=== PATIENT | male | born 1980 | race Two or more races ===

== ENCOUNTER 2024-07-07 14:00 | Emergency (ER) | payer OTHER, SELFPAY ==
--- NOTE | ~2024-07-07 | US_ITS ---
CLINICAL HISTORY: left posterio thigh mass. DVT? Left lower extremity venous duplex ultrasound Comparison: None Findings: The visualized deep veins are fully compressible with normal flow. No popliteal cyst. Noncompressible dilated superficial veins in the distal thigh at the medial aspect. Impression: No deep vein thrombosis. Superficial thrombophlebitis. This document has been electronically signed by: Hortensia Oviedo MD on 07/07/2024 17:03:04
[2024-07-07 14:12] VITALS: BP 138/82; PULSE 91; O2SAT 97
--- NOTE | 2024-07-07 14:41 | ED.GENADULT ---
HPI - General Adult General Chief complaint: Urogenital-Male Stated complaint: INFLAMED FORESKIN Time Seen by Provider: 07/07/24 14:11 Source: patient Mode of arrival: ambulatory Limitations: no limitations History of Present Illness ED Provider: Ben Haywood HPI narrative: 43 male with pmh of varicose veins, ANxiety, Depression presents to the ED for genital pain for 4 days. patient states no able to urinate. Patient state he is not circumsied. Related Data Previous Rx's ?Medication ?Instructions ?Recorded clotrimazole 1 % topical cream 1 appl topical BID 2 weeks #45 07/07/24 grams fluconazole 150 mg tablet 150 mg PO DAILY #2 tabs 07/07/24 hydrocortisone 1 % topical cream 1 appl topical BID #28.4 grams 07/07/24 naproxen 500 mg tablet 500 mg PO BID PRN pain #14 tabs 07/07/24 Allergies Allergy/AdvReac Type Severity Reaction Status Date / Time No Known Allergies Allergy Verified 07/07/24 15:20 Review of Systems Review of Systems: genital pain Yes all other systems are reviewed and are negative Physical Exam ED Vital Signs: Vital Signs - 24 hr 07/07/24 14:44 07/07/24 15:15 07/07/24 19:00 Temperature 98.4 F 98.4 F 98.4 F Pulse Rate 85 16 L 60 Respiratory Rate 16 16 16 Blood Pressure 117/67 117/67 117/67 Pulse Oximetry 95 95 95 Oxygen Delivery Method Room Air Room Air Room Air BMI result Body Mass Index 31.8 Const General: cooperative, healthy appearing, comfortable, no acute distress, well developed, alert, awake and Physically active Orientation/consciousness: patient oriented x3 HENMT Head: Yes normal to inspection, Yes No palpable skull fracture present and Yes normocephalic Eyes General: appearance normal, both eyes and all related structures Neck Neck: Yes normal visual inspection, Yes full ROM, Yes no lymphadenopathy, Yes no meningeal signs, Yes trachea midline and Yes supple Chest Chest palpation & inspection: normal inspection of the chest and normal palpation of entire chest wall Resp Effort & Inspection: normal respiratory effort and able to speak in complete sentences Auscultation: clear to auscultation bilaterally Cardio Jugular venous distension: no JVD Heart sounds: S1 normal heart sound present and S2 normal heart sound present GI Inspection: Yes normal to inspection Palpation (GI): Soft to palpation, not firm, nontender, no guarding and not rigid Other: Not retractable General: Yes no CVA tenderness Back/Spine/Pelvis Back: no CVA tenderness and No back tenderness Skin General skin exam: no rashes or lesions noted, elasticity normal and turgor normal Neuro General: patient oriented x3, gait normal, tone normal, moves all extremities, no meningeal signs, no focal motor deficits, CN's II-XI intact bilaterally and normal sensation to monofilament Cranial nerves: Yes CN's II-XII intact bilaterally Extrem Knee images: 1. Positive for varicose vein,MASS WITH REDNESS. rest of extremity is normal. motor, neuro, and vascular exam is intact. Psych Appearance: grossly normal, well kempt and not disheveled Medical Decision Making Medical Decision Making MDM Narrative: 43-year-old male presents to the ED for phimosis although still able to urinate. Pictures and case was sent to urologist and discussed with the urologist Dr. Dobbins who states presently no need for emergent circumcision and does not recommend trying to retract the foreskin. She recommends sending UA and for patient to be discharged with Diflucan and STEROID cream, FUNGAL CREAM, and for patient to follow up tomorrow in the clinic. Patient denied any distress. Patient on exam found to have left posterior thigh mass that is erythematous patient states history of varicose veins was sent for ultrasound to make sure there is no underlying DVT. 6:09pm: Patient's ultrasound shows superficial phlebitis. Patient will be discharged informed to follow up with primary provider. Not suspecting PE, DVT, shingles, necrotizing fasciitis, Alba gangrene, epididymitis, testicular torsion, or any other life-threatening etiologies. Differential Diagnosis Differential Diagnoses: The differential diagnosis associated with the presentation includes (Phimosis, balanitis, DVT,) Admission/Observation Consideration of admission/observation: Escalation of care including admission/observation considered Consult Healthcare Provider Management of the patient was discussed with: [employer] Food Server (Dr. Dobbins) Lab Data [facility] Lab Attestation statement: I reviewed the patient's lab results. Labs: Lab Results 07/07/24 Range/Units 15:46 Urine Color Yellow Urine Appearance Cloudy Urine pH 6.5 (5.0-9.0) Ur Specific [place] 1.020 (1.005-1.025) Urine Protein 100 (2+) H (Neg-Trace) mg/dL Urine Glucose (UA) Negative (Negative) mg/dL Urine Ketones Negative (Negative) mg/dL Urine Blood Negative (Negative) Urine Nitrite Negative (Negative) Ur Leukocyte Esterase Small (1+) H (Negative) Urine RBC 0-2 (0-2) /HPF Urine WBC 6-10 (0-5) /HPF Ur Squamous Epith Cells 0-2 (0-2) /HPF Urine Bacteria None Seen (None Seen) Hyaline Casts 3-5 (0-2) /LPF Independent Interpretation I performed an independent interpretation of an: Ultrasound Radiology Impression Discussion of test interpretation with radiology: I have reviewed the radiologist's reading. Independent Historian Clinical information obtained from an independent historian. History obtained from or confirmed by: Other (patient) Discharge Plan Discharge Clinical Impression: Balanitis, Phimosis, Superficial thrombophlebitis Patient Disposition: Home, Self-Care Instructions: Superficial Thrombophlebitis (ED), Balanitis (ED) Additional Instructions: Dr. Dobbins our urologist wants you to follow-up with her office. Recommend calling her office in the appointment to see if she could be seen tomorrow. Return to the ED immediately for increased swelling, increased redness, inability to urinate, testicular pain, abdominal pain, flank pain, fever, chills, chest pain, shortness of breath, leg swelling, calf pain, thigh swelling, thigh pain, or any other concerning symptoms. CLINICAL HISTORY: left posterio thigh mass. DVT? Left lower extremity venous duplex ultrasound Comparison: None Findings: The visualized deep veins are fully compressible with normal flow. No popliteal cyst. Noncompressible dilated superficial veins in the distal thigh at the medial aspect. Impression: No deep vein thrombosis. Superficial thrombophlebitis. This document has been electronically signed by: Hortensia Oviedo MD on 07/07/2024 17:03:04 Dictated By: Hortensia Lopez MD Signed By: <Electronically signed by Hortensia Lopez MD in [place]> 07/07/24 1700 Prescriptions: New fluconazole 150 mg tablet 150 mg PO DAILY Qty: 2 0RF clotrimazole 1 % cream 1 appl topical BID 14 Days Qty: 45 0RF hydrocortisone 1 % cream 1 appl topical BID Qty: 28.4 0RF naproxen 500 mg tablet 500 mg PO BID PRN (Reason: pain) Qty: 14 0RF Referrals: Carmen Mims MD [Physician] - ([facility]) Interventions: ED Discharge Assessment Last Done: 07/07/24 19:00 Discharge Date/Time: 07/07/24 19:02 Print Language: Ukrainian
[2024-07-07 14:44] VITALS: BP 117/67; PULSE 85; RESP 16; TEMP 36.9; O2SAT 95
[2024-07-07 14:48] VITALS: BMI 30.4
[2024-07-07 15:15] VITALS: BP 117/67; PULSE 16; RESP 16; TEMP 36.9; O2SAT 95; BMI 31.8
[2024-07-07 15:55] LABS: Appearance Urine Cloudy; Color Urine Yellow; Glucose Urine UA Negative (Negative); Leukocyte Esterase Urine Small (1+) (Negative); Nitrite Urine Negative (Negative); PH 6.5 (5.0-9.0); UMIC TRIGGER UACC YES; Urine Blood Negative (Negative); Urine Ketones Negative (Negative); Urine Protein 100 (2+) mg/dL (Neg-Trace)
[2024-07-07 16:13] LABS: Bacteria Urine None Seen (None Seen); RBC Urine 0-2 /HPF (0-2); Squamous Epithelial Cell Urine 0-2 /HPF (0-2); UACC Culture Trigger YES
--- NOTE | 2024-07-07 18:47 | PC.NURSE ---
Nurse to Nurse report given to Jhoana SANTOYO @[facility]
--- NOTE | 2024-07-07 18:58 | PC.NURSE ---
Report given to [facility] paperwork including DC summary and paper Rx given to Ambulance along with paperwork that arrived with PT.
[2024-07-07 19:00] VITALS: BP 117/67; PULSE 60; RESP 16; TEMP 36.9; O2SAT 95
== END 2024-07-07 19:02 | disposition home or self-care (01) ==
PROVIDERS: Physician Assistant; Emergency Provider Emergency Medicine
DX: N48.1 Balanitis (principal); I80.8 Phlebitis and thrombophlebitis of other sites; N48.89 Other specified disorders of penis; R33.9 Retention of urine, unspecified; R60.0 Localized edema; Z79.899 Other long term (current) drug therapy
CPT/HCPCS: 81001; 87086; 93971; 99284

== ENCOUNTER → 2024-07-07 15:35 | Outpatient (BNV) | payer OTHER, SELFPAY | PROVIDERS: Emergency Provider Emergency Medicine; Visit Provider Radiology Diagnostic Radiology | DX: I80.02 Phlebitis and thrombophlebitis of superficial vessels of left lower extremity (principal) | CPT/HCPCS: 93971 ==